=== PATIENT | male | born 1985 | race Caucasian/White ===

== ENCOUNTER 2016-10-11 12:57 | Emergency (ER) | payer OTHER ==
[2016-10-11] MEDS ORDERED: SULFAMETHOXAZOLE/TRIMETHOPRIM 800-160 MG TABLET PO ONE (15:15)
[2016-10-11] MEDS ORDERED: CEPHALEXIN 500 MG CAPSULE PO ONE (15:15)
--- NOTE | 2016-10-11 15:26 | ER Document Report ---
HPI - HPI Patient complains to provider of: skin infection Onset: Other Onset/Duration: Persistent - 2 days ago Quality of pain: Achy Pain Level: 1 Context: Patient states he was under a house and bumped his head on a board and may have gotten the puncture wound to the scalp. Patient complains of tenderness to the area. No fever. Associated Symptoms: Other - Scalp wound. denies: Fever Similar symptoms previously: No Recently seen / treated by doctor: No - ROS ROS below otherwise negative: Yes Systems Reviewed and Negative: Yes All other systems reviewed and negative - CONSTITUTIONAL Constitutional: DENIES: Fever, Chills - DERM Skin Color: Normal Notes: Crusted wound to occipital scalp Past Medical History - General Information source: Patient - Social History Smoking Status: Current Every Day Smoker Frequency of alcohol use: None Drug Abuse: None, Other - Distant history of IV drug use, never covered Occupation: heating and air Lives with: Family Family History: Reviewed & Not Pertinent Patient has suicidal ideation: No Patient has homicidal ideation: No - Medical History Medical History: Other - Opiate addiction Renal/ Medical History: Denies: Hx Peritoneal Dialysis Surgical Hx: Negative Vertical Provider Document - CONSTITUTIONAL Agree With Documented VS: Yes Exam Limitations: No Limitations General Appearance: WD/WN, No Apparent Distress - INFECTION CONTROL TRAVEL OUTSIDE OF THE [place] IN LAST 30 DAYS: No - HEENT HEENT: Atraumatic, Normocephalic - NECK Neck: Normal Inspection, Supple - RESPIRATORY Respiratory: Breath Sounds Normal, No Respiratory Distress O2 Sat by Pulse Oximetry: 98 - CARDIOVASCULAR Cardiovascular: Regular Rate, Regular Rhythm - MUSCULOSKELETAL/EXTREMETIES Musculoskeletal/Extremeties: MAEW - NEURO Level of Consciousness: Awake, Alert, Appropriate Motor/Sensory: No Motor Deficit - DERM Integumentary: Warm, Dry. negative: Abscess Adult Front & Back Diagram: 1 - Crusted tender skin lesion with mild surrounding erythema, no fluctuance Course - Vital Signs Vital signs: Temp Pulse Resp BP Pulse Ox 98.1 F 68 16 134/76 H 98 10/11/16 13:40 10/11/16 13:40 10/11/16 13:40 10/11/16 13:40 10/11/16 13:40 Discharge - Discharge Clinical Impression: early abscess Condition: Stable Disposition: HOME, SELF-CARE Instructions: Trimethoprim-Sulfa ([facility]), Cephalexin ([facility]), Abscess ([facility]) Additional Instructions: Return immediately for any new or worsening symptoms Followup with your primary care provider, call tomorrow to make a followup appointment warm compresses to area at least 3 times a day Prescriptions: Cephalexin Monohydrate [Keflex 500 mg Capsule] 500 mg PO Q6H 5 Days Mupirocin [Bactroban 2% Ointment 22 gm] 1 applic TP TID #22 gm Sulfamethoxazole/Trimethoprim [Bactrim Ds Tablet] 1 each PO BID #20 tablet Forms: Return to Work
[2016-10-11 16:22] VITALS: BP 122/69
== END 2016-10-11 16:23 | disposition home or self-care (01) ==
LOC: ER 12:57
DX: L02.811 Cutaneous abscess of head [any part, except face] (principal); F17.200 Nicotine dependence, unspecified, uncomplicated
CPT/HCPCS: 99282